=== PATIENT | female | born 1990 | race Two or more races ===

== ENCOUNTER 2019-01-17 00:29 | Emergency (ER) | payer OTHER ==
[~2019-01-17] VITALS: Ht 167.6 cm; Wt 82.1 kg
--- NOTE | 2019-01-17 00:37 | NUR ---
Beny humphrey in ED - 01/17/19 at 0039 by MELL CALLED FOR PT. NO RESPONSE
[2019-01-17 01:29] VITALS: BP 115/67
[2019-01-17] MEDS ORDERED: IBUPROFEN 400 MG TABLET PO ONE (02:00)
[2019-01-17] MEDS ORDERED: IBUPROFEN 400 MG TABLET ONE (02:09)
== END 2019-01-17 02:20 | disposition home or self-care (01) ==
LOC: ER 00:29
DX: M25.511 Pain in right shoulder (principal)

== ENCOUNTER 2019-05-27 21:04 | Emergency (ER) | payer OTHER ==
[~2019-05-27] VITALS: Ht 167.6 cm; Wt 76.7 kg
--- NOTE | 2019-05-27 21:55 | NUR ---
URINE COLLECTED AND SENT TO LAB.
[2019-05-27 22:11] LABS: APPEARANCE,URINE Clear (CLEAR); BILIRUBIN,URINE Negative (NEGATIVE); BLOOD, URINE Negative Ery/uL (NEGATIVE); COLOR,URINE Yellow (YELLOW); KETONES,URINE Negative (NEGATIVE); LEUKOCYTE ESTERASE ,URINE Trace (NEGATIVE); NITRITE, URINE Negative (NEGATIVE); PROTEIN,URINE Negative (NEGATIVE); UGLUCOSE Negative (NEGATIVE)
[2019-05-27] MEDS ORDERED: ONDANSETRON HCL/PF 4 MG/2 ML VIAL ONE (22:28)
[2019-05-27] MEDS ORDERED: KETOROLAC TROMETHAMINE INJ 30 MG/ML VIAL ONE (22:28)
[2019-05-27] MEDS ORDERED: KETOROLAC TROMETHAMINE INJ 30 MG/ML VIAL IV ONE (22:30)
[2019-05-27] MEDS ORDERED: IV NS 0.9% 1,000 ML BAG IV ONE (22:30)
[2019-05-27] MEDS ORDERED: ONDANSETRON HCL/PF 4 MG/2 ML VIAL IVP ONE (22:30)
--- NOTE | 2019-05-27 22:40 | NUR ---
[facility]ORENTIN TO ER. PT IN ROOM 10. PT IS ALERT AND ORIENTED X4. PT IS COMPLAINING OF PELVIC PAIN ON RIGHT SIDED [address] RADIATING UP AND TO THE BACK X 1 WEEK AND NAUSEA. DENIES VOMITING. PT REPORT TAKING MOTRIN YESTERDAY, HELPED BUT PAIN WENT BACK. VS IS STABLE. AT THE BED SIDE. LMP 05/15/19. REPORT HX OF OVARIAN CYST. IV INSERTED AT RIGHT AC#20. IV FLUID NS 0.9% IS RUNNING. ZOFRAN IS GIVEN FOR NAUSEA. WILL CONTINUE TO MONITOR.
[2019-05-27 22:46] LABS: BACTERIA,URINE Few /HPF (None Seen); MUCUS,URINE Moderate /LPF (None Seen); RBC,URINE 0-2 /HPF (0-2); SQUAMOUS EPITHELIAL CELL,UR Moderate /HPF (None Seen)
[2019-05-27 23:27] LABS: BASOPHILS # (AUTO) 0.1 /CMM (0.0-0.2); BASOPHILS % (AUTO) 0.8 % (0.0-2.0); EOSINOPHILS % (AUTO) 1.6 % (0.0-6.0); HEMATOCRIT 38 % (33-45); HEMOGLOBIN 12.5 g/dL (11.5-14.8); LYMPHOCYTES # (AUTO) 2.6 /CMM (0.8-4.8); LYMPHOCYTES % (AUTO) 28.2 % (20.0-44.0); MEAN CORPUSCULAR HGB CONC 33 g/dl (31.0-36.0); MEAN CORPUSCULAR VOLUME 89 fL (82-100); MONOCYTES # (AUTO) 0.7 /CMM (0.1-1.30); MONOCYTES % (AUTO) 7.9 % (2.0-12.0); NEUTROPHILS # (AUTO) 5.6 /CMM (1.8-8.9); NEUTROPHILS % (AUTO) 61.5 % (43.0-81.0); PLATELET COUNT (AUTO) 313 /CMM (150-450); RED BLOOD CELL COUNT(AUTO) 4.22 MIL/uL (4.0-5.2); WHITE BLOOD COUNT (AUTO) 9.1 K/uL (4.3-11.0)
[2019-05-27 23:36] LABS: CALCIUM, SERUM 8.8 mg/dL (8.5-10.1); CREATININE 0.8 mg/dL (0.6-1.3); POTASSIUM 4.2 mmol/L (3.5-5.1)
[2019-05-27 23:41] LABS: ALBUMIN 3.7 g/dL (3.4-5.0); BILIRUBIN,DIRECT 0.1 mg/dL (0.0-0.2); BILIRUBIN,TOTAL 0.2 mg/dL (0.2-1.0); TOTAL PROTEIN, SERUM 7.4 g/dL (6.4-8.2)
[2019-05-28] MEDS ORDERED: TRAMADOL HCL 50 MG TABLET ONE (00:55)
[2019-05-28] MEDS ORDERED: TRAMADOL HCL 50 MG TABLET PO ONE (01:00)
--- NOTE | 2019-05-28 01:53 | NUR ---
IV removed. Catheter intact and site benign. Pressure and 4x4 applied to site. No bleeding noted.Patient discharged to home in stable condition. Written and verbal after care instructions given. Patient verbalizes understanding of instruction. Pt ambulatory with a steady gait
[2019-05-28 01:54] VITALS: BP 113/73
== END 2019-05-28 02:00 | disposition home or self-care (01) ==
LOC: ER 21:07
DX: N83.201 Unspecified ovarian cyst, right side (principal); N39.0 Urinary tract infection, site not specified
CPT/HCPCS: 36415; 76856; 80048; 80076; 81001; 83690; 84703; 85025; 87086; 96374; 96375; 99284; J1885; J2405; J7030; 81000-TC

== ENCOUNTER 2019-07-01 20:27 | Emergency (ER) | payer OTHER ==
[~2019-07-01] VITALS: Ht 167.6 cm; Wt 76.7 kg
[2019-07-01] MEDS ORDERED: IV NS 0.9% 1,000 ML BAG IV ONE (22:00)
[2019-07-01] MEDS ORDERED: KETOROLAC TROMETHAMINE INJ 30 MG/ML VIAL IV ONE (22:00)
[2019-07-01] MEDS ORDERED: ONDANSETRON HCL/PF 4 MG/2 ML VIAL IVP ONE (22:00)
--- NOTE | 2019-07-01 22:00 | NUR ---
ADDENDUM: Intravenous End Time Documentation: Normal saline 1 liter (IV-WO) : start time: 2200 ; end time: 2300 : IV site: LAC # 20 Port # 1
[2019-07-01 22:04] LABS: BASOPHILS % (AUTO) 0.5 % (0.0-2.0); EOSINOPHILS % (AUTO) 1.3 % (0.0-6.0); HEMATOCRIT 40 % (33-45); LYMPHOCYTES # (AUTO) 2.5 /CMM (0.8-4.8); LYMPHOCYTES % (AUTO) 32.8 % (20.0-44.0); MEAN CORPUSCULAR HGB CONC 33 g/dl (31.0-36.0); MEAN CORPUSCULAR VOLUME 90 fL (82-100); MONOCYTES # (AUTO) 0.5 /CMM (0.1-1.30); NEUTROPHILS # (AUTO) 4.4 /CMM (1.8-8.9); NEUTROPHILS % (AUTO) 58.4 % (43.0-81.0); PLATELET COUNT (AUTO) 385 /CMM (150-450); WHITE BLOOD COUNT (AUTO) 7.6 K/uL (4.3-11.0)
[2019-07-01 22:18] LABS: CALCIUM, SERUM 9.1 mg/dL (8.5-10.1); CREATININE 0.8 mg/dL (0.6-1.3); POTASSIUM 3.6 mmol/L (3.5-5.1)
[2019-07-01] MEDS ORDERED: KETOROLAC TROMETHAMINE INJ 30 MG/ML VIAL ONE (22:20)
[2019-07-01] MEDS ORDERED: ONDANSETRON HCL/PF 4 MG/2 ML VIAL ONE (22:20)
[2019-07-01 22:23] LABS: ALBUMIN 3.8 g/dL (3.4-5.0); BILIRUBIN,DIRECT 0.1 mg/dL (0.0-0.2); BILIRUBIN,TOTAL 0.2 mg/dL (0.2-1.0)
--- NOTE | 2019-07-01 22:40 | NUR ---
BIBSELF C/O NAUSEA, VOMITTING X4 DAYS. AAOX4. RESPIRATIONS EVEN AND UNLABORED. SKIN INTACT. VITAL SIGNS STABLE. WILL CONTINUE TO MONITOR
[2019-07-01 22:41] LABS: APPEARANCE,URINE Slightly Cloudy (CLEAR); BILIRUBIN,URINE Negative (NEGATIVE); BLOOD, URINE Negative Ery/uL (NEGATIVE); COLOR,URINE Yellow (YELLOW); KETONES,URINE Negative (NEGATIVE); LEUKOCYTE ESTERASE ,URINE Negative (NEGATIVE); NITRITE, URINE Negative (NEGATIVE); PH,URINE 5.5 (5.0-8.0); PROTEIN,URINE Negative (NEGATIVE); UGLUCOSE Negative (NEGATIVE); UROBILINOGEN,URINE 0.2 EU/dL (0.2)
[2019-07-02 00:16] VITALS: BP 112/67
--- NOTE | 2019-07-02 00:16 | NUR ---
Patient discharged to home in stable condition. Written and verbal after care instructions given. Patient verbalizes understanding of instruction.IV removed. Catheter intact and site benign. Pressure and 4x4 applied to site. No bleeding noted.Pt ambulatory with a steady gait
== END 2019-07-02 00:16 | disposition home or self-care (01) ==
LOC: ER 20:31
DX: R11.2 Nausea with vomiting, unspecified (principal); R10.30 Lower abdominal pain, unspecified
CPT/HCPCS: 36415; 80048; 80076; 81001; 83690; 84703; 85025; 87086; 96361; 96374; 96375; 99283; J1885; J2405; 81000-TC

== ENCOUNTER 2019-07-13 22:09 | Emergency (ER) | payer OTHER ==
[~2019-07-13] VITALS: Ht 167.6 cm; Wt 77.1 kg
[2019-07-13 22:17] VITALS: BP 119/81
[2019-07-14] MEDS ORDERED: KETOROLAC TROMETHAMINE INJ 60 MG/2 ML VIAL IM ONE ×2 (00:03→00:30)
--- NOTE | 2019-07-14 00:12 | NUR ---
PATIENT COMPLAINT BACK PAIN 07/18. MD NOTIFIED, WITH ORDER TO ADMINISTER KETOROLAC 60MG, GIVEN IM L DET[place] ORDERED. WILL CONTINUE TO MONITOR ACCORDINGLY.
--- NOTE | 2019-07-14 00:25 | NUR ---
Patient discharged to home in stable condition. Written and verbal after care instructions given. Patient verbalizes understanding of instruction. Pt ambulatory with a steady gait
== END 2019-07-14 00:29 | disposition home or self-care (01) ==
LOC: ER 22:13
DX: M54.6 Pain in thoracic spine (principal); W01.0XXA Fall on same level from slipping, tripping and stumbling without subsequent striking against object, initial encounter; Y93.89 Activity, other specified; Y92.89 Other specified places as the place of occurrence of the external cause; Y99.8 Other external cause status
CPT/HCPCS: 72074; 72110; 96372; 99283; J1885

== ENCOUNTER 2019-09-20 02:03 | Emergency (ER) | payer OTHER ==
[~2019-09-20] VITALS: Ht 167.6 cm; Wt 77.1 kg
[2019-09-20 02:15] VITALS: BP 124/72
--- NOTE | 2019-09-20 03:09 | NUR ---
PATIENT TO CT VIA [facility]
[2019-09-20] MEDS ORDERED: HYDROCODONE/APAP 5/325MG 1 EACH TABLET ONE (03:40)
[2019-09-20] MEDS ORDERED: HYDROCODONE/APAP 5/325MG 1 EACH TABLET PO ONE (04:00)
--- NOTE | 2019-09-20 04:17 | NUR ---
PT'S FRIEND IS DRIVING HER HOME.
== END 2019-09-20 04:17 | disposition home or self-care (01) ==
LOC: ER 02:04
DX: S39.82XA Other specified injuries of lower back, initial encounter (principal); W18.39XA Other fall on same level, initial encounter; Y93.89 Activity, other specified; Y92.89 Other specified places as the place of occurrence of the external cause; Y99.8 Other external cause status
CPT/HCPCS: 72192-TC; 84703-TC

== ENCOUNTER 2019-10-27 23:00 | Emergency (ER) | payer OTHER ==
[~2019-10-27] VITALS: Ht 167.6 cm; Wt 76.7 kg
--- NOTE | 2019-10-27 23:21 | NUR ---
C/C HEADACHE AND DIZZINESS X3 DAYS WITH INTERMITTENT PULSING PAIN IN BACK OF HEAD, -N/V. NO COUGH. AFEBRILE. PT WAS PLACED ON A MONITOR ,
[2019-10-27] MEDS ORDERED: SUMATRIPTAN SUCCINATE 6 MG/0.5 ML VIAL SQ ONE ×2 (23:30→23:37)
[2019-10-27] MEDS ORDERED: IV NS 0.9% 1,000 ML BAG IV ONE (23:30)
[2019-10-27] MEDS ORDERED: METOCLOPRAMIDE HCL 10 MG/2 ML VIAL IV ONE (23:30)
[2019-10-27] MEDS ORDERED: METOCLOPRAMIDE HCL 10 MG/2 ML VIAL ONE (23:37)
[2019-10-28] MEDS ORDERED: KETOROLAC TROMETHAMINE INJ 30 MG/ML VIAL IV ONE (00:30)
--- NOTE | 2019-10-28 00:33 | NUR ---
PT IS REPORTED FEEELING MUCH BETTER AND WILLING TO LEAVE. PT REFUSED ANY MORE PAIN MEDICATIONS. PT IS MEDICALLY CLEARED TO BE D/C'D HOME. IV removed. Catheter intact and site benign. Pressure and 4x4 applied to site. No bleeding noted.Patient discharged to home in stable condition. Written and verbal after care instructions given. Patient verbalizes understanding of instruction. FRIENDS WILL PROVIDE PT RIDE BACK HOME.
[2019-10-28 00:35] VITALS: BP 117/78
== END 2019-10-28 00:36 | disposition home or self-care (01) ==
LOC: ER 23:02
DX: G43.909 Migraine, unspecified, not intractable, without status migrainosus (principal); F10.10 Alcohol abuse, uncomplicated; Y90.9 Presence of alcohol in blood, level not specified
CPT/HCPCS: 96372; 96374; 99283; J2765; J3030; J7030